=== PATIENT | male | born 1980 | race Caucasian/White ===

== ENCOUNTER 2016-11-24 14:46 | Emergency (ER) | payer OTHER ==
--- NOTE | 2016-11-24 14:55 | ED ---
Overdose HPI - General Chief Complaint: Overdose Stated Complaint: Overdose Time Seen by Provider: 11/24/16 14:52 - History of Present Illness Initial Comments: Patient is a 36-year-old male with heroin abuse presenting after unintentional drug overdose. Patient states he normally uses heroin. Patient used about a dime bag/$20 worth of heroin that he injected. Patient was [place] station unresponsive and cyanotic. EMS was called finding patient with decreased respirations and pinpoint pupils. 1 mg of Narcan was given with complete resolution of symptoms. Patient denies suicidality, homicidality or hallucinations. Patient has plan for drug rehab at [place] December 05. Patient did have a few episodes of vomiting after Narcan. - Related Data Allergies Allergy/AdvReac Type Severity Reaction Status Date / Time No Known Allergies Allergy Verified 11/24/16 14:59 Review of Systems ROS Statement: Those systems with pertinent positive or pertinent negative responses have been documented in the HPI. Constitutional: No fever and no chills. HENT: No congestion, no rhinorrhea and no sore throat. Eyes: No discharge and no redness. Respiratory: No cough and no shortness of breath. Cardiovascular: No chest pain and no palpitations. Gastrointestinal: +nausea, +vomiting, no abdominal pain and no diarrhea. Genitourinary: No dysuria and no hematuria. Musculoskeletal: No back pain and no arthralgias. Skin: No pallor and no rash. Neurological: No dizziness and No headaches. ROS Other: All systems not noted in ROS Statement are negative. General Exam - General Exam Comments Initial Comments: Constitutional: Patient appears well-developed and well-nourished. No distress. Head: Normocephalic and atraumatic. Eyes: Conjunctivae and EOM are normal. Right eye exhibits no discharge. Left eye exhibits no discharge. No scleral icterus. Neck: Normal range of motion. Neck supple. Cardiovascular: Normal rate and regular rhythm. No murmur heard. Pulmonary/Chest: Effort normal and breath sounds normal. No respiratory distress. No wheezes. Abdominal: Soft. No distension. There is no tenderness. There is no rebound and no guarding. Musculoskeletal: Normal range of motion. No edema or tenderness. Neurological: Patient alert and oriented to person, place, and time. Skin: Left arm with track bailey. Skin is warm and dry. +diaphoretic. Nursing notes and vitals reviewed. Course Vital Signs 11/24/16 14:54 Temperature 98.6 F Pulse Rate 85 Respiratory 15 Rate Blood Pressure 134/66 O2 Sat by Pulse 98 Oximetry - Reevaluation(s) Reevaluation #1: 11/24/16 15:27 Patient resting comfortably on the stretcher. Advised I would like to watch him for 2-3 hours. Patient states he does not want to do that and requesting to leave against medical advice. Medical Decision Making - Medical Decision Making Patient's a 36-year-old male with opiate abuse presenting after being found unresponsive and responded to Narcan 1 mg. Patient resting comfortably in the stretcher. Educated patient on duration of action of Narcan versus heroin. Patient understands. Patient given risks, benefits and alternatives and requesting to leave AGAINST MEDICAL ADVICE. Patient states he has Narcan autoinjector as well as Narcan nasal spray at home. Prior to discharge, patient was resting comfortably in bed. Course of stay improved but would require further monitoring for possible return effects of heroin. Denies pain. Discussed physical exam with patient. Questions answered and patient is agreeable that he is leaving AGAINST MEDICAL ADVICE. Recommend close follow up with Primary Care Physician and/or addiction counseling. Instructed to return to Emergency Department if symptoms worsen. Disposition Clinical Impression: Drug overdose, Heroin abuse Disposition: Left Against Medical Advice Condition: Good Instructions: Narcotic Abuse (ED) Referrals: None,Stated [Primary Care Provider] - 1-2 days Marjan Jacobsen MD [REFERRING] - 1-2 days
[2016-11-24 14:59] VITALS: BP 134/66; PULSE 85; RESP 15; TEMP 98.6
== END 2016-11-24 15:39 | disposition left against medical advice (07) ==
LOC: EC 14:46
DX: T40.1X1A Poisoning by heroin, accidental (unintentional), initial encounter (principal)
CPT/HCPCS: 99284

== ENCOUNTER → 2024-07-19 | Outpatient (CLI) | payer BC ==
--- NOTE | 2024-07-19 09:26 | US ---
EXAMINATION TYPE: US abdomen complete DATE OF EXAM: 07/19/2024 COMPARISON: NONE CLINICAL INDICATION: Male, 44 years old with history of R10.13 EPIGASTRIC PAIN; TECHNIQUE: Grayscale and color Doppler imaging of the abdomen was performed. FINDINGS: EXAM MEASUREMENTS: Liver Length: 19.1 cm Gallbladder Wall: 0.2 cm CBD: 0.5 cm, color Doppler imaging was utilized to isolate the common bile duct for measurement. Spleen: 12.0 cm Right Kidney: 10.9 x 5.1 x 5.0 cm Left Kidney: 11.5 x 4.6 x 5.0 cm Pancreas: wnl Liver: slightly enlarged with focal fatty sparring near GB Gallbladder: wnl Evidence for sonographic Dyson's sign: no CBD: wnl Spleen: wnl Right Kidney: wnl Left Kidney: wnl Upper IVC: wnl Abd Aorta: wnl The liver is homogenous. The intrahepatic portion of the IVC and proximal abdominal aorta are within normal limits. There is no evidence of cholelithiasis. Common bile duct is unremarkable. The visu alized portions of the pancreas are homogenous. The spleen is unremarkable. Kidneys are symmetric a nd free of hydronephrosis. No renal lesions are seen. IMPRESSION: Hepatic steatosis with focal fatty sparing. [facility], , 07/19/2024 9:24 AM
== END | disposition home or self-care (01) ==
LOC: RADUSWWP 06:56
PROVIDERS: ATTEND Family Medicine
DX: K76.0 Fatty (change of) liver, not elsewhere classified (principal); R10.13 Epigastric pain
CPT/HCPCS: 76700

== ENCOUNTER 2024-08-05 09:40 | Emergency (ER) | payer BC ==
--- NOTE | 2024-08-05 09:47 | ED ---
Abdominal Pain HPI - General Source: patient, RN notes reviewed Mode of arrival: ambulatory Limitations: no limitations <Gemma Stauffer - Last Filed: 08/05/24 09:46> <Pepe Viera - Last Filed: 08/05/24 12:37> - General Stated Complaint: Abdominal Pain Time Seen by Provider: 08/05/24 09:46 - History of Present Illness Initial Comments: Quick note: 44-year-old male presented to ER for evaluation of abdominal pain. Patient states this been ongoing for the past 24 hours. Pain is in lower back and bilateral abdomen. He states it is a dull achy pain. He states it is kept him up all night. Patient mitts to diarrhea. No nausea, vomiting, fevers or chills. No urinary complaints. (Gemma Stauffer) This is a 44-year-old male who presents to the emergency department stating he has been having abdominal pain for quite a while now. Patient states she has got an appointment set up with Dr. Salgado for August 14. Patient states over the weekend started developing back pain he also had upper respiratory symptoms with some congestion and cough. Patient states he does not think he had a fever but he never took his temperature. Patient denies any nausea vomiting but he does have diarrhea. Patient denies any chest pain or shortness of breath. (Pepe Viera) - Related Data Home Medications Medication Instructions Recorded Confirmed No Known Home Medications 06/01/17 06/01/17 Allergies Allergy/AdvReac Type Severity Reaction Status Date / Time No Known Allergies Allergy Verified 08/05/24 10:27 Review of Systems ROS Other: All systems not noted in ROS Statement are negative. <Gemma Stauffer - Last Filed: 08/05/24 09:46> ROS Other: All systems not noted in ROS Statement are negative. <Pepe Viera - Last Filed: 08/05/24 12:37> ROS Statement: Those systems with pertinent positive or pertinent negative responses have been documented in the HPI. Past Medical History Past Medical History: No Reported History History of Any Multi-Drug Resistant Organisms: None Reported Past Surgical History: Appendectomy Past Psychological History: Bipolar Past Alcohol Use History: None Reported Past Drug Use History: Heroin <Gemma Stauffer - Last Filed: 08/05/24 09:46> General Exam <Gemma Stauffer - Last Filed: 08/05/24 09:46> <Pepe Viera - Last Filed: 08/05/24 12:37> - General Exam Comments Initial Comments: Visual Physical Exam Vital signs reviewed General: Well-appearing, nontoxic, no acute distress. Head: Normocephalic, atraumatic Eyes: PERRLA, EOMI ENT: Airway patent Chest: Nonlabored breathing Skin: No visual rash, normal skin tone Neuro: Alert and oriented 3 Musculoskeletal: No gross abnormalities (Gemma Stauffer) GENERAL: Patient is well-developed and well-nourished. Patient is nontoxic and well- hydrated and is in mild distress. ENT: Neck is soft and supple. No significant lymphadenopathy is noted. Oropharynx is clear. Moist mucous membranes. Neck has full range of motion without eliciting any pain. EYES: The sclera were anicteric and conjunctiva were pink and moist. Extraocular movements were intact and pupils were equal round and reactive to light. Eyelids were unremarkable. PULMONARY: Unlabored respirations. Good breath sounds bilaterally. No audible rales rhonchi or wheezing was noted. CARDIOVASCULAR: There is a regular rate and rhythm without any murmurs gallops or rubs. ABDOMEN: Soft and nontender with normal bowel sounds. SKIN: Skin is clear with no lesions or rashes and otherwise unremarkable. NEUROLOGIC: Patient is alert and oriented x3. Cranial nerves II through XII are grossly intact. Motor and sensory are also intact. Normal speech, volume and content. Symmetrical smile. MUSCULOSKELETAL: Normal extremities with adequate strength and full range of motion. Patient has no CVA tenderness LYMPHATICS: No significant lymphadenopathy is noted PSYCHIATRIC: Normal psychiatric evaluation. (Pepe Viera) Course Vital Signs 08/05/24 10:20 Temperature 98.1 F Pulse Rate 86 Respiratory 22 Rate Blood Pressure 114/73 O2 Sat by Pulse 98 Oximetry Medical Decision Making <Gemma Stauffer - Last Filed: 08/05/24 09:46> - Lab Data Result diagrams: 08/05/24 10:51 08/05/24 10:51 <Pepe Viera - Last Filed: 08/05/24 12:37> - Medical Decision Making I performed the quick note portion of this chart. Electronically signed by Gemma Stauffer PA-C (Gemma Stauffer) Was pt. sent in by a medical professional or institution (ELANA Couch, TUMBLING [employer]REL PAINTER, urgent care, hospital, or long term...) When possible be specific @ -No Did you speak to anyone other than the patient for history (EMS, parent, family, police, friend...)? What history was obtained from this source @ -No Did you review nursing and triage notes (agree or disagree)? Why? @ -I reviewed and agree with nursing and triage notes Were old charts reviewed (outside hosp., previous admission, EMS record, old EKG, old radiological studies, urgent care reports/EKG's, long term records)? Report findings @ -No old charts were reviewed Differential Diagnosis? @ -Differential Back Pain: Strain, zoster, cauda equina syndrome, epidural abscess, vertebral osteomyelitis, discitis, fracture, subluxation, disc herniation, DJD, spinal stenosis, dissection, AAA, pancreatitis, peptic ulcer disease, pyelonephritis, kidney stone, this is not meant to be an all-inclusive list. COVID, influenza A, influenza B, RSV, this is not an all-inclusive list EKG interpreted by me (3pts min.). @ -As above X-rays interpreted by me (1pt min.). @ -None done CT interpreted by me (1pt min.). @ -None done U/S interpreted by me (1pt. min.). @ -None done What testing was considered but not performed or refused? (CT, X-rays, U/S, labs)? Why? @ -None What meds were considered but not given or refused? Why? @ -None Did you discuss the management of the patient with other professionals (professionals i.e. ELANA Couch, TUMBLING BARREL PAINTER, lab, RT, psych nurse, social media job titles, batt machine operator, teacher, electronic intelligence officer, comp field case manager)? Give summary @ -No Was smoking cessation discussed for >3mins.? @ -No Was critical care preformed (if so, how long)? @ -No Were there social determinants of health that impacted care today? How? (Homelessness, low income, unemployed, alcoholism, drug addiction, transportation, low edu. Level, literacy, decrease access to med. care, residential, rehab)? @ -No Was there de-escalation of care discussed even if they declined (Discuss DNR or withdrawal of care, Hospice)? DNR status @ -No What co-morbidities impacted this encounter? (DM, HTN, Smoking, COPD, CAD, Cancer, CVA, ARF, Chemo, Hep., AIDS, mental health diagnosis, sleep apnea, morbid obesity)? @ -None Was patient admitted / discharged? Hospital course, mention meds given and route, prescriptions, significant lab abnormalities, going to OR and other pertinent info. @ -Patient's lab work came back normal. Patient has no white count he has no elevation of liver enzymes. Patient has no pancreatic enzyme elevation. Patient's urine showed no infection or hematuria. Patient's influenza A came back positive. Undiagnosed new problem with uncertain prognosis? @ -No Drug Therapy requiring intensive monitoring for toxicity (Heparin, Nitro, Insulin, Cardizem)? @ -No Were any procedures done? @ -No Diagnosis/symptom? @ -Influenza A Acute, or Chronic, or Acute on Chronic? @ -Acute Uncomplicated (without systemic symptoms) or Complicated (systemic symptoms)? @ -Complicated Side effects of treatment? @ -No Exacerbation, Progression, or Severe Exacerbation? @ -No Poses a threat to life or bodily function? How? (Chest pain, [place], [place], pneumonia, PE, COPD, DKA, ARF, appy, cholecystitis, CVA, Diverticulitis, Homicidal, Suicidal, threat to staff... and all critical care pts) @ -No (Pepe Viera) - Lab Data Lab Results 08/05/24 08/05/24 08/05/24 Range/Units 10:51 10:51 10:51 WBC 6.0 (3.8-10.6) k/uL RBC 5.10 (4.30-5.90) m/uL Hgb 15.4 (13.0-17.5) gm/dL Hct 46.4 (39.0-53.0) % MCV 91.1 (80.0-100.0) fL MCH 30.2 (25.0-35.0) pg MCHC 33.1 (31.0-37.0) g/dL RDW 12.4 (11.5-15.5) % Plt Count 211 (150-450) k/uL MPV 7.8 Neutrophils % 58 % Lymphocytes % 34 % Monocytes % 5 % Eosinophils % 2 % Basophils % 0 % Neutrophils # 3.5 (1.3-7.7) k/uL Lymphocytes # 2.0 (1.0-4.8) k/uL Monocytes # 0.3 (0-1.0) k/uL Eosinophils # 0.1 (0-0.7) k/uL Basophils # 0.0 (0-0.2) k/uL Sodium 138 (137-145) mmol/L Potassium 4.2 (3.5-5.1) mmol/L Chloride 101 (98-107) mmol/L Carbon Dioxide 26 (22-30) mmol/L Anion Gap 11 mmol/L BUN 13 (9-20) mg/dL Creatinine 1.08 (0.66-1.25) mg/dL Est GFR (CKD-EPI)AfAm >90 (>60 ml/min/1.73 sqM) Est GFR (CKD-EPI)NonAf 82 (>60 ml/min/1.73 sqM) Glucose 96 (74-99) mg/dL Plasma Lactic Acid Sotero 1.5 (0.7-2.0) mmol/L Calcium 9.1 (8.4-10.2) mg/dL Total Bilirubin 0.5 (0.2-1.3) mg/dL AST 26 (17-59) U/L ALT 29 (4-49) U/L Alkaline Phosphatase 69 (38-126) U/L Total Protein 7.8 (6.3-8.2) g/dL Albumin 4.9 (3.5-5.0) g/dL Amylase 69 (30-110) U/L Lipase 113 (23-300) U/L Urine Color Urine Appearance (Clear) Urine pH (5.0-8.0) Ur Specific [place] (1.001-1.035) Urine Protein (Negative) Urine Glucose (UA) (Negative) Urine Ketones (Negative) Urine Blood (Negative) Urine Nitrite (Negative) Urine Bilirubin (Negative) Urine Urobilinogen (<2.0) mg/dL Ur Leukocyte Esterase (Negative) Influenza Type A (PCR) (Not Detectd) Influenza Type B (PCR) (Not Detectd) RSV (PCR) (Not Detectd) SARS-CoV-2 (PCR) (Not Detectd) 01/06/25 01/06/25 Range/Units 10:51 11:01 WBC (3.8-10.6) k/uL RBC (4.30-5.90) m/uL Hgb (13.0-17.5) gm/dL Hct (39.0-53.0) % MCV (80.0-100.0) fL MCH (25.0-35.0) pg MCHC (31.0-37.0) g/dL RDW (11.5-15.5) % Plt Count (150-450) k/uL MPV Neutrophils % % Lymphocytes % % Monocytes % % Eosinophils % % Basophils % % Neutrophils # (1.3-7.7) k/uL Lymphocytes # (1.0-4.8) k/uL Monocytes # (0-1.0) k/uL Eosinophils # (0-0.7) k/uL Basophils # (0-0.2) k/uL Sodium (137-145) mmol/L Potassium (3.5-5.1) mmol/L Chloride (98-107) mmol/L Carbon Dioxide (22-30) mmol/L Anion Gap mmol/L BUN (9-20) mg/dL Creatinine (0.66-1.25) mg/dL Est GFR (CKD-EPI)AfAm (>60 ml/min/1.73 sqM) Est GFR (CKD-EPI)NonAf (>60 ml/min/1.73 sqM) Glucose (74-99) mg/dL Plasma Lactic Acid Sotero (0.7-2.0) mmol/L Calcium (8.4-10.2) mg/dL Total Bilirubin (0.2-1.3) mg/dL AST (17-59) U/L ALT (4-49) U/L Alkaline Phosphatase (38-126) U/L Total Protein (6.3-8.2) g/dL Albumin (3.5-5.0) g/dL Amylase (30-110) U/L Lipase (23-300) U/L Urine Color Light Yellow Urine Appearance Clear (Clear) Urine pH 5.5 (5.0-8.0) Ur Specific [place] 1.015 (1.001-1.035) Urine Protein Negative (Negative) Urine Glucose (UA) Negative (Negative) Urine Ketones Negative (Negative) Urine Blood Negative (Negative) Urine Nitrite Negative (Negative) Urine Bilirubin Negative (Negative) Urine Urobilinogen <2.0 (<2.0) mg/dL Ur Leukocyte Esterase Negative (Negative) Influenza Type A (PCR) Detected A (Not Detectd) Influenza Type B (PCR) Not Detected (Not Detectd) RSV (PCR) Not Detected (Not Detectd) SARS-CoV-2 (PCR) Not Detected (Not Detectd) Disposition <Gemma Stauffer - Last Filed: 08/05/24 09:46> Is patient prescribed a controlled substance at d/c from ED?: No Time of Disposition: 12:37 <Pepe Viera - Last Filed: 08/05/24 12:37> Clinical Impression: Influenza A Disposition: HOME SELF-CARE Instructions (If sedation given, give patient instructions): Influenza (ED) Referrals: Gayla Villatoro MD [Primary Care Provider] - 1-2 days
[2024-08-05 11:12] LABS: Appearance,Urine Clear (Clear); Bilirubin,Urine Negative (Negative); Blood,Urine Negative (Negative); Color,Urine Light Yellow; Glucose,Urine (UA) Negative (Negative); Ketones,Urine Negative (Negative); Leukocyte Esterase,Urine Negative (Negative); Nitrite,Urine Negative (Negative); PH, Urine 5.5 (5.0-8.0); Protein,Urine Negative (Negative); Specific Gravity,Urine 1.015 (1.001-1.035); Urobilinogen,Urine <2.0 mg/dL (<2.0)
[2024-08-05 11:29] LABS: Basophils % (A) 0 %; Eosinophils # (A) 0.1 k/uL (0-0.7); Eosinophils % (A) 2 %; HCT 46.4 % (39.0-53.0); HGB 15.4 gm/dL (13.0-17.5); Lymphocytes % (A) 34 %; MCH 30.2 pg (25.0-35.0); MCHC 33.1 g/dL (31.0-37.0); MCV 91.1 fL (80.0-100.0); Mean Platelet Volume 7.8; Monocytes # (A) 0.3 k/uL (0-1.0); Monocytes % (A) 5 %; Neutrophils # (A) 3.5 k/uL (1.3-7.7); Neutrophils % (A) 58 %; Platelet Count 211 k/uL (150-450); RDW 12.4 % (11.5-15.5)
[2024-08-05 11:31] LABS: ALT 29 U/L (4-49); AST 26 U/L (17-59); African American GFR (CKD) >90 (>60 ml/min/1.73 sqM); Albumin 4.9 g/dL (3.5-5.0); Alkaline Phosphatase 69 U/L (38-126); Amylase 69 U/L (30-110); Anion Gap 11 mmol/L; Blood Urea Nitrogen 13 mg/dL (9-20); Calcium 9.1 mg/dL (8.4-10.2); Carbon Dioxide 26 mmol/L (22-30); Chloride 101 mmol/L (98-107); Glucose 96 mg/dL (74-99); Lipase 113 U/L (23-300); Non-African American GFR(CKD) 82 (>60 ml/min/1.73 sqM); Potassium 4.2 mmol/L (3.5-5.1); Sodium 138 mmol/L (137-145); Total Bilirubin 0.5 mg/dL (0.2-1.3); Total Protein 7.8 g/dL (6.3-8.2)
[2024-08-05 13:12] VITALS: BP 126/67; PULSE 79; RESP 18; TEMP 98.8
== END 2024-08-05 13:12 | disposition home or self-care (01) ==
LOC: EC 09:40
DX: J10.1 Influenza due to other identified influenza virus with other respiratory manifestations (principal)
CPT/HCPCS: 36415; 80053; 81003; 82150; 83605; 83690; 85025; 87636; 99284